=== PATIENT | male | born 1955 | race African-American/Black ===

== ENCOUNTER 2016-09-28 18:34 | Emergency (ER) | payer OTHER ==
[~2016-09-28] VITALS: Ht 172.7 cm; Wt 68.0 kg
[2016-09-28 19:32] VITALS: BP 162/102
== END 2016-09-28 19:25 | disposition home or self-care (01) ==
LOC: ED 18:34
DX: S30.0XXA Contusion of lower back and pelvis, initial encounter (principal); I10 Essential (primary) hypertension; F41.9 Anxiety disorder, unspecified; Z79.899 Other long term (current) drug therapy; V49.60XA Unspecified car occupant injured in collision with unspecified motor vehicles in traffic accident, initial encounter; Y93.89 Activity, other specified; Y92.488 Other paved roadways as the place of occurrence of the external cause; Y99.8 Other external cause status